=== PATIENT | male | born 1965 | race Caucasian/White ===

== ENCOUNTER 2016-06-07 06:36 | Day surgery (SDC) | payer BC ==
[~2016-06-07] VITALS: Ht 177.8 cm; Wt 88.2 kg
[2016-06-07 07:17] LABS: AUTOMATED NEUTROPHIL # 6.2 TH/MM3 (1.8-7.7); BASOPHIL # 0.1 TH/MM3 (0-0.2); EOSINOPHIL # 0.8 TH/MM3 (0-0.4); EOSINOPHIL % 7.4 % (0.0-4.0); HEMATOCRIT 38.7 % (39.0-51.0); HEMO FLAGS DIFF FINAL; LYMPH % 26.2 % (9.0-44.0); LYMPHOCYTE # 2.7 TH/MM3 (1.0-4.8); MEAN CELL VOLUME 84.3 FL (80.0-100.0); MEAN CORPUSCULAR HEMOGLOBIN 30.2 PG (27.0-34.0); MEAN CORPUSCULAR HGB CONC 35.8 % (32.0-36.0); NEUT % 60.4 % (16.0-70.0); PLATELET COUNT 225 TH/MM3 (150-450); RED BLOOD COUNT 4.59 MIL/MM3 (4.50-5.90); RED CELL DISTRIBUTION WIDTH 13.6 % (11.6-17.2); WHITE BLOOD COUNT 10.3 TH/MM3 (4.0-11.0)
[2016-06-07 07:27] LABS: APTT (PATIENT) 26.7 SEC (24.3-30.1); INTERNATIONAL NORMALIZED RATIO 0.9 RATIO; PROTHROMBIN TIME - PATIENT 10.3 SEC (9.8-11.6)
[2016-06-07 07:28] LABS: BICARBONATE 25.6 MEQ/L (21.0-32.0); POTASSIUM 3.3 MEQ/L (3.5-5.1)
[2016-06-07] MEDS ORDERED: LEVO.1 PO (07:32)
[2016-06-07] MEDS ORDERED: ACAR50TA PO (07:32)
[2016-06-07] MEDS ORDERED: GEMF600 PO (07:32)
[2016-06-07] MEDS ORDERED: PERC5TAB12 PO (07:32)
[2016-06-07] MEDS ORDERED: TEST1INJ3 IM (07:32)
[2016-06-07] MEDS ORDERED: DULA10IN SQ (07:32)
[2016-06-07] MEDS ORDERED: AMIT25TA9 PO (07:32)
[2016-06-07] MEDS ORDERED: LAMO100T PO (07:32)
[2016-06-07] MEDS ORDERED: TOPA100T11 PO (07:32)
[2016-06-07] MEDS ORDERED: VITA100021 SL (07:32)
[2016-06-07] MEDS ORDERED: HYDR5TAB64 PO (07:32)
[2016-06-07] MEDS ORDERED: LANTUS2P SQ (07:32)
[2016-06-07] MEDS ORDERED: AMLO10TA2 PO (07:32)
[2016-06-07] MEDS ORDERED: ROPI1TAB72 PO (07:32)
[2016-06-07] MEDS ORDERED: METF500T4 PO (07:32)
[2016-06-07] MEDS ORDERED: HUMALOG SQ (07:32)
[2016-06-07] MEDS ORDERED: METO25TA3 PO (07:32)
[2016-06-07] MEDS ORDERED: LISI40TA PO (07:32)
[2016-06-07] MEDS ORDERED: FLUO40CA PO (07:32)
[2016-06-07] MEDS ORDERED: AMBI10TA PO (07:32)
[2016-06-07] MEDS ORDERED: OMEP40CA2 PO (07:32)
[2016-06-07] MEDS ORDERED: CYCL1TAB29 PO (07:32)
[2016-06-07 07:37] VITALS: BP 122/95; PULSE 72; RESP 18; TEMP 97.9; O2SAT 98
[2016-06-07] MEDS ORDERED: HEPARIN-NS/PF INJ 500 ML ONE (08:14)
[2016-06-07] MEDS ORDERED: VERAPAMIL HCL 5 MG/2 ML VIAL ONE (08:15)
[2016-06-07] MEDS ORDERED: MIDAZOLAM HCL 2 MG/2 ML VIAL ONE (08:15)
[2016-06-07] MEDS ORDERED: NITROGLYCERIN INJ 5 ML ONE (08:16)
[2016-06-07] MEDS ORDERED: HEPARIN SODIUM - IV 10,000 UNITS/10 ML VIAL ONE (08:16)
[2016-06-07] MEDS ORDERED: ADENOSINE STRESS TEST INJ 90 MG/30 ML VIAL ONE (09:15)
[2016-06-07] MEDS ORDERED: ASPIRIN 325 MG TAB ONE (09:28)
[2016-06-07] MEDS ORDERED: TICAGRELOR 90 MG TAB PO ONE ×2 (09:49→17:18)
[2016-06-07] MEDS ORDERED: SODIUM CHLOR 0.9% 1000 ML INJ 1,000 ML IV SCH (10:08)
[2016-06-07] MEDS ORDERED: ACETAMINOPHEN 325 MG TAB PO PRN (10:15)
[2016-06-07] MEDS ORDERED: SODIUM CHLORIDE 0.9% FLUSH 10 ML FLUSH PRN (10:15)
[2016-06-07] MEDS ORDERED: ONDANSETRON HCL 4 MG/2 ML VIAL IVP PRN (10:15)
[2016-06-07] MEDS ORDERED: MISC INFORMATION XX ONE (10:15)
[2016-06-07] MEDS ORDERED: MORPHINE SULFATE 4 MG/ML INJ IV PUSH PRN (10:15)
[2016-06-07] MEDS ORDERED: IOHEXOL 350 MG/ML 100 ML BTL (for Cath Lab) OTHER ONE (10:25)
[2016-06-07] MEDS ORDERED: IOHEXOL 350 MG/ML 50 ML BTL (for Cath Lab) OTHER ONE (10:25)
[2016-06-07] MEDS ORDERED: oxyCODONE/ACETAMINOPHEN 5 MG/325 MG TAB PO ONE (11:00)
[2016-06-07] MEDS ORDERED: LIPI40TA PO (14:32)
[2016-06-07] MEDS ORDERED: Aspirin Chew PO (14:32)
[2016-06-07] MEDS ORDERED: BRIL90TA PO (14:32)
--- NOTE | 2016-06-07 14:35 | HHI.DS ---
Discharge Summary Admission Date 06/07/16 Discharge Date: Jun 07, 2016 Admitting Diagnosis Procedures [facility]PER to LAD CBC/BMP: 06/07/16 0700 06/07/16 0700 Significant Findings Laboratory Tests Test 06/07/16 07:00 Hematocrit 38.7 % (39.0-51.0) Eosinophils (%) (Auto) 7.4 % (0.0-4.0) Eosinophils # (Auto) 0.8 TH/MM3 (0-0.4) Potassium Level 3.3 MEQ/L (3.5-5.1) Random Glucose 254 MG/DL (74-106) Calcium Level 8.4 MG/DL (8.5-10.1) Pt Condition on Discharge: Good Discharge Disposition: Discharge Home Discharge Instructions DIET: Follow Instructions for: As Tolerated, No Restrictions Activities you can perform: See Additionl Instruction Daren Jacob DO Jun 07, 2016 14:35
[2016-06-07] MEDS ORDERED: oxyCODONE/ACETAMINOPHEN 10 MG/325 MG TAB PO PRN (15:00)
[2016-06-07] MEDS ORDERED: oxyCODONE/ACETAMINOPHEN 5 MG/325 MG TAB PO PRN (15:00)
--- NOTE | 2016-06-07 19:57 | MA ---
cc: DAREN PARIKH DO DATE 06/07/2016 PROCEDURE Left heart catheterization, coronary angiogram, FFR LAD, Resolute drug-eluting stent (3.5 x 18) to proximal LAD, moderate sedation 75 minutes. PREPROCEDURE DIAGNOSIS Shortness of breath which may be an anginal equivalent, abnormal stress test. POSTPROCEDURE DIAGNOSIS Stress test false positive, significant proximal LAD by FFR status post Resolute drug-eluting stent (3.5 x 18). MEDICATIONS GIVEN Nitroglycerin 200 mcg, Verapamil 2.5 mg, Heparin 8,800 units, Versed 1.5 mg, Fentanyl 100 mcg, Adenosine for FFR, Aspirin 325 mg, Brilinta 180 mg CONTRAST USED 140 mL. FLUOROSCOPY 13.9 minutes ANESTHESIA Moderate sedation 75 minutes PROCEDURAL SUMMARY Onur Bejarano is a pleasant 50-year-old male who I originally saw in the office due to significant shortness of breath and fatigue. This was worked up from an outpatient standpoint and finally he underwent pharmacologic nuclear stress testing which showed possible disease in the inferior wall. Because of this he was recommended cardiac catheterization. Risks, benefits and alternatives were explained to him and he consented as such. He was brought to the lab and prepped in the usual sterile fashion. Right radial artery was accessed using a modified Seldinger technique and placement of a 5/6 [place] sheath. This was easily aspirated and flushed. JR-4 was then advanced over a J-wire to the ascending aorta and across the aortic valve into the left ventricle. LVEDP was measured at 12. This was pulled back across the aortic valve showing no significant gradient of aortic stenosis. JR-4 was used for selective angiography of the right coronary artery. This was exchanged for a JL-3.5 which was used for selective angiography of the left coronary system. Please see notes below for FFR and intervention. Afterwards a TR band was placed for hemostasis. 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 Left main is a normal-size vessel with 10% disease. It trifurcates into an LAD ramus and left circumflex. LAD proximal portion has a short focal lesion of 70%. The mid to distal portions of the LAD appear relatively normal in nature. It does give off one diagonal branch at the previously mentioned lesion which has a 40% lesion in the ostium. Ramus appears to be normal in size and bifurcates with the upper branch having a 30-40% ostial lesion. The lower branch appears to have a 50% ostial lesion. Left circumflex is overall a small vessel which is nondominant in nature and has 20% diffuse disease. Right coronary artery is a dominant vessel with diffuse 20-30% through the mid and distal portion. It does give off a PDA and two posterior lateral branches with no significant disease. FFR and intervention. The patient's stress test showed possible inferior ischemia, although nothing correlated with this on coronary angiogram. As there was concern for the proximal LAD at the takeoff of the first diagonal it was felt that this should be further evaluated with IFR and then possibly FFR. JL-3.5 catheter was exchanged for an EBU 3.5 guide. Heparin was given as an anticoagulant. The FFR wire was then advanced to the distal portion of the LAD. IFR was measured at 0.91 which is an intermediate value and so this was further evaluated with adenosine and FFR measurements. FFR was 0.80. Because of his significant shortness of breath on two antianginals with an FFR of 0.8, it was felt that this was a significant lesion and should be intervened upon. The FFR wire was kept in place for the intervention. A compliant balloon (2.75 x 12) was advanced over the lesion and inflated. This was then exchanged for a Resolute drug-eluting stent (3.5 x 18). This was used to cover the entirety of the lesion. After inflation, this was exchanged for a noncompliant balloon (3.5 x 12) for apposition against the vascular wall. After removal of the noncompliant balloon post shots show a well opposed stent with no significant residual, IRVING flow III, no perforations or dissections noted. FFR wire and EBU catheter were then removed. IMPRESSION 1. Shortness of breath which may be his anginal equivalent. 2. Currently on two antianginals with continual symptoms. 3. Abnormal pharmacologic nuclear stress test. 4. Significant coronary artery disease. RECOMMENDATIONS 1. Because Mr. Bejarano had a drug-eluting stent placed to his proximal LAD, he will continue on aspirin and Brilinta with a plan for aspirin indefinitely and Brilinta at least 12 months. 2. I did discuss with him the importance of continuing his dual antiplatelet therapy. He was given a card for a free 30 days of Brilinta. His will call the pharmacy and see what her copay will be for Brilinta after that and if too expensive he will be changed to Plavix. 3. I did explain to him that he may have further shortness of breath while on Brilinta but if he could old out it usually goes after two weeks' time. 4. He is already on beta vincent and RANDAL inhibitor therapy but I will be adding statin therapy as he is not on this. 5. We will plan to discharge him home in 6-7 hours if stable. 6. He will follow up with me in the office. Thank you for allowing me to see Onur Bejarano. If there are any questions please do not hesitate to call. Daren Parikh DO VGP/KK /5:06 PM /7:33 PM MTDValente
[2016-06-07] MEDS ORDERED: ATORVASTATIN 80 MG TAB PO SCH (21:00)
[2016-06-07] MEDS ORDERED: SODIUM CHLORIDE 0.9% FLUSH 10 ML FLUSH SCH (21:00)
[2016-06-07] MEDS ORDERED: TICAGRELOR 90 MG TAB PO SCH (21:00)
--- NOTE | 2016-06-07 22:08 | EKG ---
Date Performed: 06/07/2016 Time Performed: 07:34:00 PTAGE: 50 years EKG: Sinus rhythm Normal ECG NO PREVIOUS TRACING DOCTOR: Daren Jacob Interpretating Date/Time 06/07/2016 22:07:16
[2016-06-08] MEDS ORDERED: ASPIRIN 81 MG CHEW TAB PO SCH (09:00)
== END 2016-06-07 17:30 | disposition home or self-care (01) ==
LOC: HDIC 06:36 → HDOC 06:36
PROVIDERS: ATTEND Nuclear Medicine Nuclear Cardiology
DX: I25.10 Atherosclerotic heart disease of native coronary artery without angina pectoris (principal); I10 Essential (primary) hypertension; E11.9 Type 2 diabetes mellitus without complications; Z79.82 Long term (current) use of aspirin
CPT/HCPCS: 80048; 85002; 85025; 85610; 85730; 92928; 93005; 93454; 93571; C1725; C1769; C1874; C1887; C1893; G0269; J0153; J1644; J2250; J3010; Q9967